=== PATIENT | male | born 1960 | race Caucasian/White ===

== ENCOUNTER 2017-07-06 16:48 | Inpatient (IN) | payer MEDICAID ==
[~2017-07-06] VITALS: Ht 177.8 cm; Wt 110.7 kg
[2017-07-06 18:33] LABS: BASOPHIL % 1.4 % (0-2); PLATELET COUNT 211 x10^3mcL (130-400); RED CELL DISTRIBUTION WIDTH 14.3 % (11.5-14.5)
[2017-07-06 18:42] LABS: CALCIUM 8.6 mg/dL (8.5-10.1); CARBON DIOXIDE 28.5 mmol/L (21-32); CHLORIDE SERUM 103 mmol/L (98-107); CREATININE SERUM 1.2 mg/dL (0.7-1.3); GFR1 > 60 mL/min; GLUCOSE SERUM 95 mg/dL (74-106); POTASSIUM SERUM 3.4 mmol/L (3.5-5.1); SODIUM SERUM 140 mmol/L (136-145)
[2017-07-06 18:47] LABS: ALBUMIN 3.6 g/dL (3.4-5.0); ALKALINE PHOSPHATASE 87 U/L (46-116); ALT/SGPT 23 U/L (16-63); AST/SGOT 13 U/L (15-37); BILIRUBIN TOTAL 0.33 mg/dL (0.20-1.00); TOTAL PROTEIN, SERUM 6.7 g/dL (6.4-8.2)
[2017-07-06] MEDS ORDERED: HCTZ/LISINOPRIL1 TA1 PO (19:13)
[2017-07-06] MEDS ORDERED: LOSARTAN POTASS1 TAB PO (19:13)
[2017-07-06 20:41] LABS: CHOLESTEROL/HDL RATIO 2.8; PHOSPHOROUS 4.2 mg/dL (2.5-4.9)
[2017-07-06 20:48] LABS: FREE T4 1.31 ng/dL (0.76-1.46); FREE THYROXINE INDEX 3.6 ug/dL (1.4-4.5)
[2017-07-06 21:07] LABS: T3 TOTAL 1.45 ng/mL
[2017-07-06 21:50] VITALS: BP 174/111
[2017-07-06 22:45] VITALS: BP 167/100
[2017-07-06] MEDS ORDERED: PRILOSEC OTC20 M1 PO (23:03)
[2017-07-07] VITALS (9 sets, daily range): BP systolic 145–165; BP diastolic 80–111; Ht 177.8 cm; Wt 110.7 kg
[2017-07-07 04:52] LABS: microscopic required? NO
[2017-07-07 04:58] LABS: UA SPECIFIC GRAVITY 1.015 (1.005-1.035); urine erythrocyte NEGATIVE (NEGATIVE)
[2017-07-07 05:05] LABS: AMPHETAMINE QUAL UR NONE DETECTED (NEG <=1000)
[2017-07-07 06:09] LABS: BASOPHIL % 0.7 % (0-2); PLATELET COUNT 210 x10^3mcL (130-400)
[2017-07-07 06:15] LABS: CALCIUM 8.6 mg/dL (8.5-10.1); CARBON DIOXIDE 26.8 mmol/L (21-32); CHLORIDE SERUM 101 mmol/L (98-107); CREATININE SERUM 1.1 mg/dL (0.7-1.3); GFR1 > 60 mL/min; GLUCOSE SERUM 92 mg/dL (74-106); MAGNESIUM 2.3 mg/dL (1.8-2.4); PHOSPHOROUS 3.1 mg/dL (2.5-4.9); POTASSIUM SERUM 3.3 mmol/L (3.5-5.1); SODIUM SERUM 139 mmol/L (136-145)
[2017-07-07 06:41] LABS: RED CELL DISTRIBUTION WIDTH 14.6 % (11.5-14.5)
[2017-07-08 05:17] VITALS: BP 136/94
[2017-07-08 06:16] LABS: BASOPHIL % 0.3 % (0-2); PLATELET COUNT 209 x10^3mcL (130-400)
[2017-07-08 06:40] LABS: RED CELL DISTRIBUTION WIDTH 14.6 % (11.5-14.5)
[2017-07-08 06:51] LABS: CALCIUM 8.7 mg/dL (8.5-10.1); CARBON DIOXIDE 28.4 mmol/L (21-32); CHLORIDE SERUM 104 mmol/L (98-107); CREATININE SERUM 1.3 mg/dL (0.7-1.3); GFR1 > 60 mL/min; GLUCOSE SERUM 96 mg/dL (74-106); MAGNESIUM 2.3 mg/dL (1.8-2.4); POTASSIUM SERUM 4.1 mmol/L (3.5-5.1); SODIUM SERUM 139 mmol/L (136-145)
[2017-07-08] MEDS ORDERED: LIPI10 PO (07:48)
[2017-07-08] MEDS ORDERED: ZES20 PO (07:49)
[2017-07-08] MEDS ORDERED: METOPROLOL TART25 M1 PO (07:49)
[2017-07-08] MEDS ORDERED: ECO81 PO (07:50)
[2017-07-08] MEDS ORDERED: PRI20 PO (07:50)
[2017-07-08 09:04] VITALS: BP 150/88
[2017-07-08 10:12] VITALS: BP 150/88
== END 2017-07-08 11:02 | disposition home or self-care (01) | DRG 243 ==
LOC: ED 16:48 → DU 19:10 → MU 07-07 16:50
PROVIDERS: Emergency Medicine; Family Medicine Sports Medicine
DX: K21.9 Gastro-esophageal reflux disease without esophagitis (principal); I10 Essential (primary) hypertension; I16.0 Hypertensive urgency; E87.6 Hypokalemia; F41.0 Panic disorder [episodic paroxysmal anxiety]; F17.211 Nicotine dependence, cigarettes, in remission; E66.9 Obesity, unspecified; Z68.35 Body mass index [BMI] 35.0-35.9, adult; Z87.11 Personal history of peptic ulcer disease
CPT/HCPCS: 83880; 84439; J0360; J2060; J2270; J2405; J3480; J3490; J7030; Q0092